=== PATIENT | female | born 1980 | race American Indian/Alaskan Native ===

== ENCOUNTER 2020-04-30 17:05 | Emergency (ER) | payer OTHER ==
[~2020-04-30] VITALS: Ht 165.1 cm; Wt 63.5 kg
[~2020-04-30 17:05] MED LIST: NORCO 5-325 TA1 EACH PO
[2020-04-30] MEDS ORDERED: NAPROSYN500 MG PO (18:07)
[2020-04-30] MEDS ORDERED: NORCO 5-325 TA1 EACH PO (18:07)
== END 2020-04-30 18:26 | disposition home or self-care (01) ==
LOC: ED 17:05
DX: S92.354A Nondisplaced fracture of fifth metatarsal bone, right foot, initial encounter for closed fracture (principal); F17.200 Nicotine dependence, unspecified, uncomplicated; Z88.0 Allergy status to penicillin; X50.9XXA Other and unspecified overexertion or strenuous movements or postures, initial encounter
CPT/HCPCS: 73630; 99283-25